=== PATIENT | female | born 1965 | race Asian ===

== ENCOUNTER 2017-10-10 08:19 | Emergency (ER) | payer BC ==
[~2017-10-10] VITALS: Ht 165.1 cm; Wt 68.0 kg
[~2017-10-10 08:19] MED LIST: LOSA25TA18 PO
[2017-10-10 08:23] VITALS: TEMP 36.9; Ht 165.1 cm; Wt 68.0 kg
[2017-10-10] MEDS ORDERED: ONDANSETRON INJ 2 MG/ML 2 ML VIAL IV STA (08:45)
[2017-10-10 09:04] LABS: BASO % 0.9 %; BASO ABS # 0.04 K/uL (0-0.2); COMPLETE YES; EOS % 2.3 %; LYMPH % 37.3 %; LYMPH ABS # 1.65 K/uL (1.2-3.4); MEAN CELL VOLUME 84.4 fL (80-100); MEAN CORPUSCULAR HGB CONC 33.2 g/dl (32-36); MEAN PLATELET VOLUME 9.9 fL (7.4-10.4); MONO % 6.1 %; NEUT % 53.4 %; PLATELET COUNT 154 K/uL (130-400); WHITE BLOOD COUNT 4.42 K/uL (4.8-10.8)
[2017-10-10 09:13] VITALS: O2SAT 97
[2017-10-10] MEDS ORDERED: CALC500C70 PO (09:15)
[2017-10-10 09:23] LABS: ALT/SGPT 19 U/L (12-78); BLOOD UREA NITROGEN 13 mg/dl (7-18); BUN/CREATININE RATIO 27.2 (10-20); CALCIUM 8.6 mg/dl (8.5-10.1); CARBON DIOXIDE 27 mmol/L (21-32); CHLORIDE 106 mmol/L (98-107); CREATININE 0.49 mg/dl (0.60-1.20); GLUCOSE 110 mg/dl (70-99); MAGNESIUM 2.2 mg/dl (1.8-2.4); POTASSIUM 3.5 mmol/L (3.5-5.1); SODIUM 141 mmol/L (136-145)
--- NOTE | 2017-10-10 09:28 | DIAGNOSTIC IMAGING REPORT ---
CHEST ONE VIEW PORTABLE CLINICAL HISTORY: 52 years-old Female presenting with CHEST PAIN. TECHNIQUE: Portable upright AP view of the chest was obtained. COMPARISON: 01/23/2016. FINDINGS: Atherosclerosis of the aortic arch. Cardiac silhouette normal in size. Lungs and pleural spaces clear. Osseous structures normal. Upper abdomen normal. IMPRESSION: 1. No acute cardiopulmonary disease. Electronically signed by: Rivas Keyes M.D. 10/10/2017 9:27 AM Dictated Date/Time: 10/10/2017 9:26 AM
[2017-10-10 09:32] LABS: ALKALINE PHOSPHATASE 65 U/L (45-117); AST/SGOT 11 U/L (15-37); PHOSPHORUS 3.1 mg/dl (2.5-4.9)
[2017-10-10 09:51] LABS: URINE APPEARANCE CLEAR (CLEAR); URINE BILIRUBIN NEG (NEG); URINE COLOR YELLOW; URINE EPITHELIAL CELL AUTO 0-5 /lpf (0-5); URINE NITRITE NEG (NEG); URINE SPECIFIC GRAVITY 1.009 (1.000-1.030); UROBILINOGEN NEG (NEG); ZZUR CULT IF INDIC CLEAN CATCH NO
[2017-10-10 09:52] LABS: MANUAL MICROSCOPIC REQUIRED? NO; REVIEW REQ? NO
[2017-10-10 11:23] VITALS: BP 146/99; PULSE 63; O2SAT 97
--- NOTE | 2017-10-10 11:23 | EMERGENCY ROOM VISIT NOTE ---
History First contact with patient: 08:31 Chief Complaint: HYPERTENSION Stated Complaint: HIGH BLOOD PRESSURE History of Present Illness The patient is a 52 year old female who presents to the Emergency Room with complaints of high blood pressure, nausea, chest pain, shortness of breath, insomnia and anxiety. The patient reports that she has been very stressed over the past few weeks. She has been checking her blood pressure at [facility] and has been consistently high. The patient is currently taking losartan, and has been on this medication for approximately 2 years area one year ago, her family doctor try to increase her dose, but her blood pressure dropped too low. She was put back on 25 mg daily. The patient tried to self adjust her dose about 2- 3 months ago with similar effect. She has not followed up with her family doctor regarding her increased blood pressure level. The patient does not know if her insomnia and nausea are due to her blood pressure or anxiety. The patient denies any known history of thyroid disease. She has had no recent infections. The patient reports that she occasionally has shortness bursa of increased heart rate and palpitations. When this happens, she also experiences mild shortness of breath. She currently denies any chest pain or shortness of breath, complaining only of nausea. Review of Systems HEENT: Denies dizziness, visual problems, hearing loss, tinnitus. Denies difficulty swallowing or oral lesions. PULMONARY: Denies cough, sputum production or hemoptysis. CARDIOVASCULAR: Denies recent dyspnea on exertion, orthopnea or peripheral edema. GASTROINTESTINAL: Denies diarrhea, constipation, vomiting or abdominal pain. GENITOURINARY: Denies dysuria, frequency, urgency or nocturia. NEUROLOGIC: Denies history of epilepsy, CVA, TIA or chronic headaches. MUSCULOSKELETAL: Denies history of joint tenderness/swelling. SKIN: Denies rashes or lesions. PSYCHIATRIC: Denies history of depression or mental illness. ENDOCRINE: History of diabetes. Denies thyroid disorders. Past Medical/Surgical History Medical Problems: (1) Diabetes (2) Heart disease (3) HTN (hypertension) Family History FH: CAD (coronary artery disease) FH: HTN (hypertension) FH: cancer FH: myocardial infarction Social History Smoking Status: Never Smoker Alcohol Use: none Marital Status: Housing Status: lives with family Occupation Status: employed Current/Historical Medications Scheduled Calcium/Vitamin D (Os-Josemanuel 500 Plus D), 1 TAB PO DAILY Losartan Potassium (Cozaar), 25 MG PO DAILY Physical Exam Vital Signs Date Time Temp Pulse Resp B/P (MAP) Pulse Ox O2 Delivery O2 Flow Rate FiO2 10/10/17 11:00 68 18 146/99 98 Room Air 10/10/17 10:31 170/93 10/10/17 10:19 63 13 97 10/10/17 10:01 140/88 10/10/17 09:49 62 13 97 10/10/17 09:31 146/96 10/10/17 09:25 61 10/10/17 09:22 156/99 10/10/17 09:13 97 Room Air 10/10/17 09:12 61 16 152/96 97 Room Air 10/10/17 08:23 36.9 69 18 163/94 97 Room Air Physical Exam CONSTITUTIONAL: Healthy and well nourished. Alert and oriented X 3 with positive affect. Patient appears in discomfort from nausea, and denies any pain on exam. HEENT: Normocephalic, atraumatic. Pupils equal, round and reactive. Ears and nares are clear. No scleral icterus or conjunctival injection/pallor. NECK: Full active range of motion without discomfort. No JVD or carotid bruits. OROPHARYNX: Mucous membranes are moist. No posterior pharyngeal erythema or tonsillar hypertrophy. RESPIRATORY: Clear to auscultation bilaterally with no wheezing, crackles, rhonchi or stridor. CARDIOVASCULAR: Regular rate and rhythm with no murmurs, rubs or gallops. GASTROINTESTINAL: Bowel sounds present in all quadrants. Abdomen is soft and nontender to palpation. MUSCULOSKELETAL: Full range of motion of all joints without discomfort. INTEGUMENTARY: No rash or other significant dermatologic conditions noted. HEMATOLOGIC: No ecchymosis or petechiae noted. NEUROLOGIC: No focal neurologic deficits noted. Medical Decision & Procedures ER Provider Diagnostic Interpretation: My interpretation of an ECG shows a sinus bradycardia of 57 bpm with a first- degree AV block. No other ST elevation or T-wave inversion noted. Comparison with a prior ECG from 2016 shows no acute changes. My interpretation of a portable chest x-ray does not show any consolidations, widened mediastinum or pneumothorax. Radiologist report is as follows: CHEST ONE VIEW PORTABLE CLINICAL HISTORY: 52 years-old Female presenting with CHEST PAIN. TECHNIQUE: Portable upright AP view of the chest was obtained. COMPARISON: 01/23/2016. FINDINGS: Atherosclerosis of the aortic arch. Cardiac silhouette normal in size. Lungs and pleural spaces clear. Osseous structures normal. Upper abdomen normal. IMPRESSION: 1. No acute cardiopulmonary disease. Laboratory Results 10/10/17 08:46 Red Blood Count 4.50, Mean Corpuscular Volume 84.4, Mean Corpuscular Hemoglobin 28.0, Mean Corpuscular Hemoglobin Concent 33.2, Mean Platelet Volume 9.9, Neutrophils (%) (Auto) 53.4, Lymphocytes (%) (Auto) 37.3, Monocytes (%) (Auto) 6.1, Eosinophils (%) (Auto) 2.3, Basophils (%) (Auto) 0.9, Neutrophils # (Auto) 2.36, Lymphocytes # (Auto) 1.65, Monocytes # (Auto) 0.27, Eosinophils # (Auto) 0.10, Basophils # (Auto) 0.04 10/10/17 08:46 Test 10/10/17 08:46 10/10/17 09:25 White Blood Count 4.42 K/uL (4.8-10.8) Red Blood Count 4.50 M/uL (4.2-5.4) Hemoglobin 12.6 g/dL (12.0-16.0) Hematocrit 38.0 % (37-47) Mean Corpuscular Volume 84.4 fL (80-100) Mean Corpuscular Hemoglobin 28.0 pg (25-34) Mean Corpuscular Hemoglobin Concent 33.2 g/dl (32-36) Platelet Count 154 K/uL (130-400) Mean Platelet Volume 9.9 fL (7.4-10.4) Neutrophils (%) (Auto) 53.4 % Lymphocytes (%) (Auto) 37.3 % Monocytes (%) (Auto) 6.1 % Eosinophils (%) (Auto) 2.3 % Basophils (%) (Auto) 0.9 % Neutrophils # (Auto) 2.36 K/uL (1.4-6.5) Lymphocytes # (Auto) 1.65 K/uL (1.2-3.4) Monocytes # (Auto) 0.27 K/uL (0.11-0.59) Eosinophils # (Auto) 0.10 K/uL (0-0.5) Basophils # (Auto) 0.04 K/uL (0-0.2) RDW Standard Deviation 39.3 fL (36.4-46.3) RDW Coefficient of Variation 12.9 % (11.5-14.5) Immature Granulocyte % (Auto) 0.0 % Immature Granulocyte # (Auto) 0.00 K/uL (0.00-0.02) Prothrombin Time 10.0 SECONDS (9.0-12.0) Prothromb Time International Ratio 1.0 (0.9-1.1) Activated Partial Thromboplast Time 26.6 SECONDS (21.0-31.0) Partial Thromboplastin Ratio 1.0 D-Dimer < 190 ug/L FEU (0-500) Anion Gap 8.0 mmol/L (3-11) Est Creatinine Clear Calc Drug Dose 118.1 ml/min Estimated GFR () 128.0 Estimated GFR (Non- 110.5 BUN/Creatinine Ratio 27.2 (10-20) Calcium Level 8.6 mg/dl (8.5-10.1) Phosphorus Level 3.1 mg/dl (2.5-4.9) Magnesium Level 2.2 mg/dl (1.8-2.4) Total Bilirubin 0.8 mg/dl (0.2-1) Direct Bilirubin 0.2 mg/dl (0-0.2) Aspartate Amino Transf (AST/SGOT) 11 U/L (15-37) Alanine Aminotransferase (ALT/SGPT) 19 U/L (12-78) Alkaline Phosphatase 65 U/L (45-117) Total Creatine Kinase 71 U/L (26-192) Creatine Kinase MB < 0.5 ng/ml (0.5-3.6) Creatine Kinase MB Ratio (0-3.0) Troponin I < 0.015 ng/ml (0-0.045) Total Protein 7.0 gm/dl (6.4-8.2) Albumin 4.1 gm/dl (3.4-5.0) Lipase 102 U/L (73-393) Thyroid Stimulating Hormone (TSH) 2.570 uIu/ml (0.300-4.500) Urine Color YELLOW Urine Appearance CLEAR (CLEAR) Urine pH 7.0 (4.5-7.5) Urine Specific [place] 1.009 (1.000-1.030) Urine Protein NEG (NEG) Urine Glucose (UA) NEG (NEG) Urine Ketones NEG (NEG) Urine Occult Blood TRACE (NEG) Urine Nitrite NEG (NEG) Urine Bilirubin NEG (NEG) Urine Urobilinogen NEG (NEG) Urine Leukocyte Esterase NEG (NEG) Urine WBC (Auto) 0 /hpf (0-5) Urine RBC (Auto) 0-4 /hpf (0-4) Urine Hyaline Casts (Auto) 0 /lpf (0-5) Urine Epithelial Cells (Auto) 0-5 /lpf (0-5) Urine Bacteria (Auto) NEG (NEG) The above labs were reviewed and were grossly normal. ED Course Patient history and physical exam were performed. Nurse's notes were reviewed. Vital signs were reviewed. Blood pressure in triage was 163/94. She is otherwise afebrile and not tachycardic. The patient appears nauseated, otherwise does not appear in any other acute distress. IV access was established, and labs were drawn. The patient was administered Zofran 4 mg IVP. ECG and portable chest x-ray were normal except for a mild sinus bradycardia with first-degree block. This is unchanged from an ECG from 2016. Review of labs does not show any acute abnormalities of concern. D-dimer and troponin are normal. The patient is not anemic, and is euthyroid. It is noted that the patient was complaining of nausea on my initial exam; her nurse later told me that she refused Zofran when it was offered to her that she was not nauseated and did not have any abdominal pain. All findings were reviewed with the patient. I also discussed the case further with Dr. Santizo. I also spoke with our hospital pharmacist about whether Cozaar can be split in half, and was told that although it is not scored, it should be readily split as needed. When I discussed this again with the patient, she reports that she has already done this as well at home. At this point, I suggested that she discuss further medication management with her family doctor as she may need to have a secondary antihypertensive added to her treatment, or switch to an entirely different medicine. The patient was offered a prescription for nausea medicine, but felt that she would be fine without it. The patient also reported difficulty sleeping. I suggested that she try Benadryl 25-50 mg one hour before bedtime to help with sleep. Otherwise she will follow-up with her PCP within the next week, returning to the emergency performed for any significant worsening symptoms. The patient was happy with plan of care, and voiced understanding of all discharge instructions. Medical Decision Patient presents to the emergency department with complaint of labile hypertension and other symptoms such as nausea, chest pain, palpitations, shortness of breath and difficulty sleeping. She does admit to being under a lot of stress. I do question some mild underlying anxiety. Her blood pressure while in the emergency department was labile. However I do not feel that an emergent change to her antihypertensive medications are warranted. Workup today is not suggestive of myocardial infarction, pneumothorax, pulmonary embolus or other acute cardiopulmonary etiology. She does have a mild sinus bradycardia with first-degree block. I do not suspect this is causing her symptoms. The patient is not anemic and is euthyroid. She is afebrile and has no leukocytosis to suspect overwhelming infection. Her clinical exam is otherwise benign. Medication Reconcilliation Current Medication List: was personally reviewed by me Blood Pressure Screening Patient's blood pressure: Elevated blood pressure Blood pressure disposition: Referred to PCP Impression Primary Impression: HTN (hypertension) Additional Impression: Anxiety Departure Information Referrals Simone Queen M.D. (PCP) Patient Instructions My [facility] Problem Qualifiers Primary Impression: HTN (hypertension) Hypertension type: unspecified Qualified Codes: I10 - Essential (primary) hypertension
== END 2017-10-10 11:25 | disposition home or self-care (01) ==
LOC: C.EDB 08:22
DX: I10 Essential (primary) hypertension (principal); F41.9 Anxiety disorder, unspecified; E11.9 Type 2 diabetes mellitus without complications; Z82.49 Family history of ischemic heart disease and other diseases of the circulatory system; Z80.9 Family history of malignant neoplasm, unspecified

== ENCOUNTER 2017-12-01 23:12 | Emergency (ER) | payer BC ==
[~2017-12-01] VITALS: Ht 165.1 cm; Wt 66.5 kg
[~2017-12-01 23:12] MED LIST changes: +CALC500C70 PO
[2017-12-01 23:15] VITALS: TEMP 38.6; Ht 165.1 cm; Wt 66.5 kg
[2017-12-02] MEDS ORDERED: MULTTAB5 PO (00:12)
[2017-12-02] MEDS ORDERED: IBUPROFEN 600 MG TAB PO STA (00:44)
[2017-12-02 01:08] LABS: INFLUENZA B ANTIGEN Neg for Influ B (NEG)
[2017-12-02] MEDS ORDERED: OSELTAMIVIR PHOSPHATE 75 MG CAP PO STA (01:21)
[2017-12-02] MEDS ORDERED: OSEL75CA12 PO (02:12)
[2017-12-02 02:26] VITALS: BP 132/85; PULSE 90; O2SAT 98
--- NOTE | 2017-12-03 07:22 | EMERGENCY ROOM VISIT NOTE ---
History First contact with patient: 00:35 Chief Complaint: FLU LIKE SX Stated Complaint: FEVER, CATCH COLD History of Present Illness The patient is a 52 year old female who presents to the Emergency Room with complaints of fever and flulike symptoms for the past one day. The patient states that her recently traveled to and from [place], and when he got home he was slightly sick. The patient is much more sick than him and has been running a fever at home. She has a mild cough but no other significant symptoms. She has been taking Tylenol at home with some improvement of discomfort. She rates her current discomfort a 4/10. Review of Systems More than 6 systems were reviewed and otherwise negative with the exception of history of present illness. Past Medical/Surgical History Medical Problems: (1) Diabetes (2) Heart disease (3) HTN (hypertension) Family History FH: CAD (coronary artery disease) FH: HTN (hypertension) FH: cancer FH: myocardial infarction Social History Smoking Status: Never Smoker Alcohol Use: none Marital Status: Housing Status: lives with family Occupation Status: employed Current/Historical Medications Scheduled Calcium/Vitamin D (Os-Josemanuel 500 Plus D), 1 TAB PO DAILY Losartan Potassium (Cozaar), 25 MG PO DAILY Multiple Vitamins W/ Minerals (Centrum), 1 TAB PO DAILY Oseltamivir (Tamiflu), 75 MG PO BID Physical Exam Vital Signs Date Time Temp Pulse Resp B/P (MAP) Pulse Ox O2 Delivery O2 Flow Rate FiO2 12/02/17 02:26 90 18 132/85 98 12/02/17 00:11 92 18 141/89 98 Room Air 12/02/17 00:07 86 12/01/17 23:15 38.6 98 18 142/94 95 Room Air Physical Exam VITALS: Vitals are noted on the nurse's note and reviewed by myself. Vital signs stable. GENERAL: Well-developed, well-nourished, female, who appears ill but not toxic. HEAD: Normocephalic atraumatic. EARS: External ear normal. External auditory canals clear, tympanic membranes pearly bucio without erythema or effusion bilaterally. EYES: Pupils equal round and reactive to light and accommodation. Conjunctivae without injection, sclerae without icterus. Extraocular movements intact. NOSE: Patent, turbinates without inflammation or discharge. MOUTH: Mucous membranes moist. Tonsils are not enlarged. Pharynx without erythema, blood, or exudate. Uvula midline. Airway patent. NECK: Supple without nuchal rigidity. No lymphadenopathy. No thyromegaly. Cervical spine is nontender. HEART: Regular rate and rhythm without murmurs gallops or rubs. LUNGS: Clear to auscultation bilaterally without wheezes, rales or rhonchi. No retractions or accessory muscle use. Medical Decision & Procedures Laboratory Results Test 12/02/17 00:05 Influenza Type A Antigen POS for Influ A (NEG) Influenza Type B Antigen Neg for Influ B (NEG) Medications Administered Medications (Trade) Dose Ordered Sig/[place] Route Start Time Stop Time Status Last Admin Dose Admin Ibuprofen (Motrin Tab) 600 mg NOW STAT PO 12/02/17 00:44 12/02/17 00:45 DC 12/02/17 00:48 600 MG Oseltamivir Phosphate (Tamiflu Cap) 75 mg NOW STAT PO 12/02/17 01:21 12/02/17 01:22 DC 12/02/17 01:28 75 MG ED Course Physical exam and history were performed. Nursing notes, EMR, and Medication List were personally reviewed. Patient appears to have flulike symptoms for the past one day. She was given Motrin here in the department for comfort. Influenza swabs were performed, and returned positive for influenza A. The patient was given a dose of Tamiflu. She will be given a continuation prescription of the medication. She is educated a conservative measures and interventions the ER with any new, worsening, or concerning symptoms. The chart was completed utilizing [employer] Speech Voice Recognition Software. Grammatical errors, random word insertions, pronoun errors, and incomplete sentences are an occasional consequence of this system due to software limitations, ambient noise, and hardware issues. Any formal questions or concerns about the content, text, or information contained within the body of this dictation should be directly addressed to the provider for clarification. . Medical Decision Differential diagnosis: Etiologies such as viral syndrome, otitis, pharyngitis, pneumonia, influenza, meningitis, urinary tract infection, sepsis, bacteremia, as well as others were entertained. Impression Primary Impression: Influenza A Departure Information Dispostion Home / Self-Care Condition GOOD Prescriptions Oseltamivir (Tamiflu) 75 Mg Cap 75 MG PO BID for 5 Days, #10 CAP Prov: Ge Basilio PA-C 12/02/17 Forms HOME CARE DOCUMENTATION FORM, Work Instructions, Additional Instructions: Patient was seen in ER for medical care. Return to work on 12/06/2017 Please excuse. IMPORTANT VISIT INFORMATION Patient Instructions My [facility] Additional Instructions You were seen and evaluated today on an emergency basis only. This is not a substitute for, or an effort to provide, complete comprehensive medical care. It is not possible to recognize and treat all injuries or illnesses in a single emergency department visit. For this reason it is recommended that you followup with your primary care physician next week for ongoing care and evaluation. For baseline pain relief you may alternate ibuprofen and acetaminophen every 4 hours for pain control. Take 600 mg ibuprofen (Advil) and then 4 hours later take 1000 mg acetaminophen (Tylenol). Do not take more than 3000 mg acetaminophen in a single day. Take Tamiflu 75 mg twice daily for the next 5 days You are welcome to return to the emergency department anytime with new, worsening, or concerning symptoms. Work Instructions Additional Work Instructions: Patient was seen in ER for medical care. Return to work on 12/06/2017. Please excuse.
== END 2017-12-02 02:28 | disposition home or self-care (01) ==
LOC: C.EDB 23:13 → C.EDA 12-02 02:28
DX: J10.1 Influenza due to other identified influenza virus with other respiratory manifestations (principal); E11.9 Type 2 diabetes mellitus without complications; I10 Essential (primary) hypertension; Z79.899 Other long term (current) drug therapy; Z82.49 Family history of ischemic heart disease and other diseases of the circulatory system; Z83.3 Family history of diabetes mellitus